=== PATIENT | male | born 1995 | race Caucasian/White ===

== ENCOUNTER 2021-06-22 10:22 | Emergency (ER) | payer OTHER ==
[~2021-06-22] VITALS: Ht 180.3 cm; Wt 73.7 kg
[2021-06-22 10:34] VITALS: BP 142/49
[2021-06-22] MEDS ORDERED: CYCL5TAB PO (10:59)
[2021-06-22] MEDS ORDERED: KETOROLAC 60 MG/2 ML VIAL. IM ONE (11:00)
[2021-06-22] MEDS ORDERED: ORPHENADRINE CITRATE 60 MG/2 ML VIAL. IM ONE (11:00)
--- NOTE | 2021-06-22 11:06 | PHYS DOC ---
Past History Past Surgical History: No Surgical History (VAISHALI GONSALEZ APRN) Alcohol Use: None (VAISHALI GONSALEZ APRN) General Adult EDM: Chief Complaint: MULTIPLE COMPLAINTS HPI: HPI: Patient is a 25-year-old male who presents to the ER for multiple complaints. Patient is reporting left lower back pain that radiates down into his buttock and down the back of his leg that started on . It is worse with sitting. Patient rates his pain 7 out of 10. No treatment prior to arrival. No injuries. No loss of bowel or bladder, no saddle anesthesias. Patient is also reporting left jaw pain that started this week. He states that it is worse when he yawns, chews or laughs. He denies any injury. He denies any sore throat. 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 Patient is also reporting intermittent nosebleeds that occur at random times. He states that the last nosebleed he had was a couple days ago and it occurred at 2:00 in the morning, the bleeding is able to be stopped and it has not been uncontrolled. He denies any injuries. (VAISHALI GONSALEZ APRN) Review of Systems: Review of Systems: 14 body systems of the review of systems have been reviewed. See HPI for pertinent positive and negative responses, otherwise all other systems are negative, nonpertinent or noncontributory (VAISHALI GONSALEZ APRN) Current Medications: Current Meds: Current Medications Medications (Trade) Dose Ordered Sig/Stacy Start Time Stop Time Status Last Admin Dose Admin Ketorolac Tromethamine (Toradol Im) 60 mg 1X ONCE 06/22/21 11:00 06/22/21 11:01 UNV Orphenadrine Citrate (Norflex) 60 mg 1X ONCE 06/22/21 11:00 06/22/21 11:01 UNV (VAISHALI GONSALEZ APRN) Allergies: Allergies: Allergies Coded Allergies Type Severity Reaction Last Updated Verified No Known Drug Allergies 06/22/21 No (VAISHALI GONSALEZ APRN) Physical Exam: PE: Constitutional: Well developed, well nourished, no acute distress, non-toxic appearance. [] HENT: Normocephalic, atraumatic, bilateral external ears normal, no tonsillar enlargement, no active nosebleed, no pharyngeal erythema, uvula midline, no trismus, no phonation changes, oropharynx moist, no oral exudates, nose normal, crepitus palpated on the left TMJ when patient opens and closes his mouth. [] Eyes: PERRL, EOMI, conjunctiva normal, no discharge. [] Neck: Normal range of motion, no bony spinal tenderness, supple, no stridor. [] Cardiovascular: Normal peripheral perfusion Lungs & Thorax: Normal work of breathing, no tachypnea Abdomen: Soft and flat Skin: Warm, dry, no erythema, no rash. [] Back: No bony spinal tenderness, no CVA tenderness, normal range of motion, left lumbar paraspinal tenderness with palpation, positive left straight leg raise Extremities: No tenderness, no cyanosis, no clubbing, ROM intact, no edema. [] Neurologic: Alert and oriented X 3, normal motor function, normal sensory function, no focal deficits noted. [] Psychologic: Affect normal, judgement normal, mood normal. [] (VAISHALI GONSALEZ APRN) Current Patient Data: Vital Signs: Vital Signs Date Time Temp Pulse Resp B/P (MAP) Pulse Ox O2 Delivery O2 Flow Rate FiO2 06/22/21 10:34 98.0 45 14 142/49 (80) 99 Room Air (VAISHALI GONSALEZ APRN) EKG: EKG: [] (VAISHALI GONSALEZ APRN) Radiology/Procedures: Radiology/Procedures: []PROCEDURE: CT LUMBAR SPINE WO CONTRAST CT LUMBAR SPINE WO History: Low back pain radiating down left leg. Technique: Noncontrast CT was performed of the lumbar spine. Multiplanar reconstructions were performed. Comparison: None Findings: Normal vertebral body height and alignment. No fracture. Disc heights are preserved. T12-L5: No significant disc or facet disease. L5-S1: Broad-based disc protrusion asymmetric to the left subarticular zone with possible contact on the transiting left S1 nerve root (axial image 70). The paraspinal soft tissues are unremarkable. Impression: 1. Broad-based disc protrusion asymmetric to left subarticular at L5-S1 with potential adverse disc or contact on the transiting left S1 nerve root. Correlate for radiculopathy referring to the left S1. MRI of the lumbar spine is available for further evaluation if indicated. Exposure: One or more of the following individualized dose reduction techniques were utilized for this examination: 1. Automated exposure control 2. Adjustment of the mA and/or kV according to patient size 3. Use of iterative reconstruction technique. Electronically signed by: Obey Robles MD (06/22/2021 11:23 AM) [facility] DICTATED AND SIGNED BY: OBEY ROBLES MD DATE: 06/22/21 1116 CC: VAISHALI GONSALEZ APRN; PCP,NO ~MTH0 0 (VAISHALI GONSALEZ APRN) Heart Score: C/O Chest Pain: N/A Risk Factors: Risk Factors: DM, Current or recent (<one month) smoker, HTN, HLP, family history of CAD, obesity. Risk Scores: Score 0 - 3: 2.5% MACE over next 6 weeks - Discharge Home Score 4 - 6: 20.3% MACE over next 6 weeks - Admit for Clinical Observation Score 7 - 10: 72.7% MACE over next 6 weeks - Early Invasive Strategies (VAISHALI GONSALEZ APRN) Course & Med Decision Making: Course & Med Decision Making Pertinent Labs and Imaging studies reviewed. (See chart for details) [] Patient presents for multiple complaints including low back pain that radiates down his left buttock, left jaw pain worse with yawning and chewing and laughing, intermittent nosebleeds that are chronic. Imaging was performed of his lumbar spine that showed disc protrusions with nerve root involvement consistent with radiculopathy. Patient treated with an anti-inflammatory and muscle relaxer. reports improvement in pain. Left jaw pain is most likely TMJ, he was advised to use anti-inflammatory medications and purchase mouthguard. Crepitus palpated with left jaw movement. Intermittent nosebleeds are most lik denis due to dry nasal mucosa, educated on the use of saline nasal sprays to keep the nasal mucosa moist. Nosebleeds have not been uncontrolled. Patient currently does not have a nosebleed. Patient has been known bleeding disorders. Patient advised to follow-up with his primary care provider. I discussed with patient all findings and diagnostic testing as well as the need to follow-up with PCP for further evaluation and treatment or return to the ER if any new or worsening symptoms. Strict return precautions were also discussed at length. Patient voiced understanding and agreement with the plan. Patient is hemodynamically stable at the time of disposition. (VAISHALI GONSALEZ APRN) Course & Med Decision Making I was the Attending physician on the above date of service of this patient. This patient was evaluated, examined, treated, and dispositioned from the emergency department by the mid-level practitioner. Although I was working at the time , no assistance was requested. Electronically signed, Ameena Marie DO (AMEENA MARIE DO) Sabiha Disclaimer: Sabiha Disclaimer: This electronic medical record was generated, in whole or in part, using a voice recognition dictation system. (VAISHALI GONSALEZ APRN) Departure Departure: Impression: Primary Impression: Low back pain Qualified Codes: M54.42 - Lumbago with sciatica, left side Additional Impression: Temporal mandibular joint disorder Disposition: HOME / SELF CARE / HOMELESS Condition: GOOD Referrals: PCP,UGO (PCP) Patient Instructions: Nose Drops, Saline, [id number], Nosebleed, Sciatica, Temporomandibular Joint Pain-Brief Additional Instructions: You are seen in the emergency department for low back pain. You had a scan of your low back and it was negative for any acute findings. Symptoms you are describing are consistent with sciatica. You were treated with a muscle relaxer and an anti-inflammatory medication in the ER. Continue to take ibuprofen or naproxen at home and you can take the muscle relaxer that is prescribed for you. This medication may cause drowsiness so do not take any need to be alert do not take with alcohol. Anti-inflammatory medications like ibuprofen and naproxen can help with your jaw pain also. As we discussed, monitor for any symptoms of grinding your teeth at night as you may need to purchase a mouthguard. In regards to your occasional nosebleeds, I think it is likely due to your nasal mucosa being too dry and you may benefit from saline nose spray to keep it moist. You can buy this [id number] at a pharmacy. Please follow-up with your primary care provider on Wednesday regarding your ER visit. Return to the emergency department if you have loss of bowel or bladder, numbness or tingling in your groin, inability to bear weight or ambulate, difficulty breathing or swallowing, nosebleeds that are uncontrolled, lightheadedness or any new or worsening concerns. EMERGENCY DEPARTMENT GENERAL DISCHARGE INSTRUCTIONS Thank you for coming to [facility] (ED) today and trusting us with you care. We trust that you had a positivie experience in our Emergency Department. If you wish to speak to the department management, you may call the director at [phone]. YOUR FOLLOW UP INSTRUCTIONS ARE FOLLOWS: 1. Do you have a private Doctor? If you do not have a private doctor, please ask for a resource list of physicians or clinics that may be able to assist you with follow up care. 2. The Emergency Physician has interpreted your x-rays. The X-Ray specialist will also review them. If there is a change in the findings, you will be notified in 48 hours when at all possible. 3. A lab test or culture has been done, your results will be reviewed and you will be notified if you need a change in treatment. ADDITIONAL INSTRUCTIONS AND INFORMATION: 1. Your care today has been supervised by a physician who is specially trained in emergency care. Many problems require more than one evaluation for a complete diagnosis and treatment. We recommend that you schedule your follow up appointment as recommended to ensure complete treatment of you illness or injury. If you are unable to obtain follow up care and continue to have a problem, or if your condition worsens, we recommend that you return to the ED. 2. We are not able to safely determine your condition over the phone nor are we able to give sound medical advice over the phone. For these safety reasons, if you call for medical advice we will ask you to come to the ED for further evaluation. 3. If you have any questions regarding these discharge instructions please call the ED at [phone]. SAFETY INFORMATION: In the interest of safety, wellness, and injury prevention; we encourage you to wear your sealbelt, if you smoke; quite smoking, and we encourage family to use a protective helmet for bicycling and other sporting events that present an increased risk for head injury. IF YOUR SYMPTOMS WORSEN OR NEW SYMPTOMS DEVELOP, OR YOU HAVE CONCERNS ABOUT YOUR CONDITION; OR IF YOUR CONDITION WORSENS WHILE YOU ARE WAITING FOR YOUR FOLLOW UP APPOINTMENT; EITHER CONTACT YOUR PRIMARY CARE DOCTOR, THE PHYSICIAN WHOSE NAME AND NUMBER YOU WERE GIVEN, OR RETURN TO THE ED IMMEDIATELY. Scripts Cyclobenzaprine Hcl (CYCLOBENZAPRINE HCL) 5 Mg Tablet 1 TAB PO TID for muscle spasm for 7 Days, #21 TAB 0 Refills Prov: VAISHALI GONSALEZ APRN 06/22/21 VAISHALI GONSALEZ APRN Jun 22, 2021 11:06 AMEENA MARIE DO Jun 22, 2021 13:19
--- NOTE | 2021-06-22 11:25 | RAD ---
CT LUMBAR SPINE WO History: Low back pain radiating down left leg. Technique: Noncontrast CT was performed of the lumbar spine. Multiplanar reconstructions were perform ed. Comparison: None Findings: Normal vertebral body height and alignment. No fracture. Disc heights are preserved. T12-L5: No significant disc or facet disease. L5-S1: Broad-based disc protrusion asymmetric to the left subarticular zone with possible contact on the transiting left S1 nerve root (axial image 70). The paraspinal soft tissues are unremarkable. Impression: 1. Broad-based disc protrusion asymmetric to left subarticular at L5-S1 with potential adverse disc or contact on the transiting left S1 nerve root. Correlate for radiculopathy referring to the left S1 . MRI of the lumbar spine is available for further evaluation if indicated. Exposure: One or more of the following individualized dose reduction techniques were utilized for thi s examination: 1. Automated exposure control 2. Adjustment of the mA and/or kV according to patient size 3. Use of iterative reconstruction technique. Electronically signed by: Obey Castro MD (06/22/2021 11:23 AM) [facility]
== END 2021-06-22 11:48 | disposition home or self-care (01) ==
LOC: ER 10:22
DX: M54.42 Lumbago with sciatica, left side (principal); M26.602 Left temporomandibular joint disorder, unspecified; R04.0 Epistaxis
CPT/HCPCS: 72131; 96372; 99284; J1885; J2360